=== PATIENT | female | born 1990 | race Caucasian/White ===

== ENCOUNTER 2019-04-09 21:03 | Emergency (ER) | payer OTHER ==
--- NOTE | 2019-04-10 00:09 | ER Document Report ---
ED Medical Screen (RME) - General Chief Complaint: Abdominal Pain Stated Complaint: PELVIC PAIN Time Seen by Provider: 04/10/19 00:01 Notes: 28-year-old female with history of 2 ectopic pregnancies (right ovary and right fallopian tube, respectively) presents to the emergency department with right-sided pelvic pain x2 days. She states her symptoms are consistent with previous ectopic pregnancies described as dull aching right adnexal pain with some associated lower back pain. She is complaining of spotting. She has associated nausea and vomiting. EXAM: Well-appearing and nontoxic in no acute distress. Lungs are clear to auscultation in all fisher. Regular cardiac rate and rhythm with no murmurs. I have greeted and performed a rapid initial assessment of this patient. A comprehensive ED assessment and evaluation of the patient, analysis of test results and completion of medical decision making process will be conducted by an additional ED providers. TRAVEL OUTSIDE OF THE [place] IN LAST 30 DAYS: No - Related Data Allergies/Adverse Reactions: amoxicillin Allergy (Verified 04/09/19 21:05) clarithromycin [From Biaxin] Allergy (Verified 04/09/19 21:05) Physical Exam - Vital signs Vitals: Temp Pulse Resp BP Pulse Ox 98.3 F 89 20 128/64 H 100 04/09/19 21:13 04/09/19 21:13 04/09/19 21:13 04/09/19 21:13 04/09/19 21:13 Course - Vital Signs Vital signs: Temp Pulse Resp BP Pulse Ox 98.3 F 89 20 128/64 H 100 04/09/19 21:13 04/09/19 21:13 04/09/19 21:13 04/09/19 21:13 04/09/19 21:13
--- NOTE | 2019-04-10 01:08 | RADIOLOGY REPORT (SQ) ---
EXAM DESCRIPTION: US TRANSVAGINAL COMPLETED DATE/TME: 04/10/2019 00:02 CLINICAL HISTORY: 28 years Female, Hx multiple ectopic pregnancies/ PCOS. Unknown LMP. COMPARISON: None. TECHNIQUE: Complete first trimester testicle ultrasound with transvaginal imaging. FINDINGS: Uterus: The uterus measures 9.9 x 6.6 x 7.1 cm. Cervical length of 3.7 cm. No myometrial abnormalities. Gestational sac: Normal appearing gestational sac. Mean gestational sac diameter of 2.69 cm. pole: pole identified with a crown-rump length of 0.84 cm. heart motion: 136 bpm Yolk sac: Mildly enlarged yolk sac. Placenta: Not well evaluated due to early gestational age. Right ovary: The right ovary measures 2.7 x 2.7 x 2.9 cm. Left ovary: The left ovary measures 3.1 x 2.1 x 1.9 cm. Adnexa: No large adnexal masses. Free fluid: No free pelvic fluid. Duplex imaging: Color and spectral Doppler imaging of the ovaries demonstrates blood flow bilaterally. IMPRESSION: 1. Single live intrauterine with estimated gestational age of 6 weeks, 6 days. heart rate of 136 bpm. 2. Mildly enlarged yolk sac. This can be a poor prognostic indicator. Close continued obstetrical, sonographic, and laboratory follow-up recommended.
[2019-04-10 01:26] LABS: APPEARANCE,URINE CLEAR; BILIRUBIN,URINE NEGATIVE (NEGATIVE); COLOR,URINE STRAW; GLUCOSE, URINE NEGATIVE (NEGATIVE); KETONES,URINE NEGATIVE (NEGATIVE); LEUKOCYTE ESTERASE,URINE NEGATIVE (NEGATIVE); NITRITE,URINE NEGATIVE (NEGATIVE); PROTEIN,URINE NEGATIVE (NEGATIVE); URINE SPECIFIC GRAVITY 1.006; UROBILINOGEN,URINE NEGATIVE mg/dL (<2.0)
[2019-04-10] MEDS ORDERED: ACETAMINOPHEN 325 MG TABLET PO ONE (01:37)
--- NOTE | 2019-04-10 01:48 | ER Document Report ---
ED General - General Chief Complaint: Abdominal Pain Stated Complaint: PELVIC PAIN Time Seen by Provider: 04/10/19 00:01 Primary Care Provider: [facility] [Provider Group] - Follow up in 3-5 days CHRISTIANNE VANEGAS PA-C [Primary Care Provider] - Follow up as needed TRAVEL OUTSIDE OF THE [place] IN LAST 30 DAYS: No - HPI Notes: Patient is a 28-year-old female that presents to the emergency department for chief complaint of right adnexal pain. Patient states over the last 2 days she has had intermittent right sided adnexal pain. She describes it as a throbbing achy sensation. She states it feels similar to to previous ectopic she has had. Both were treated with methotrexate and she has not had any pelvic surgery. She had one on her right ovary and one in the right fallopian tube. Patient is estimating that she is around 10 weeks based on her menstrual cycle but states she is irregular and is not sure of when her LMP exactly was. She has had a home positive test. She has not established with OB yet. She denies any dysuria, urinary frequency, fever, chills, nausea, vomiting and diarrhea. Patient does report some brown vaginal discharge over the last 2 to 3 days as well but denies any concern for STI. She states she has never needed RhoGam in the past. Past Medical History: Negative Past Surgical History: Negative Social History: Denies drugs alcohol and tobacco Family History: Reviewed and noncontributory for presenting illness Allergies: Reviewed, see documented allergy list. REVIEW OF SYSTEMS: CONSTITUTIONAL : No fever No chills No diaphoresis No recent illness EENT: No vision changes No congestion No sore throat CARDIOVASCULAR: No chest pain No palpitations RESPIRATORY: No shortness of breath No cough No difficulty breathing GASTROINTESTINAL: abdominal pain No nausea No vomiting No diarrhea GENITOURINARY: No dysuria No hematuria No difficulty urinating MUSCULOSKELETAL: No back pain No leg pain No arm pain SKIN: No rashes No lesions LYMPHATIC: No swollen, enlarged glands. NEUROLOGICAL: No lightheadedness No headache No weakness No paresthesias PSYCHIATRIC: No anxiety No depression PHYSICAL EXAMINATION: Vital signs reviewed, nursing noted reviewed. GENERAL: Well-appearing, well-nourished and in no acute distress. HEAD: Atraumatic, normocephalic. EYES: Eyes appear normal, extraocular movements intact, sclera anicteric, conjunctiva are normal. ENT: nares patent, oropharynx clear without exudates. Moist mucous membranes. NECK: Normal range of motion, supple without lymphadenopathy LUNGS: Breath sounds clear to auscultation bilaterally and equal. No wheezes rales or rhonchi. HEART: Regular rate and rhythm without murmurs ABDOMEN: Soft, nontender, normoactive bowel sounds. No rebound, guarding, or rigidity. No masses appreciated. EXTREMITIES: Nontender, good range of motion, no pitting or edema. NEUROLOGICAL: No focal neurological deficits. Moves all extremities spontaneously Motor and sensory grossly intact on exam. PSYCH: Normal mood, normal affect. SKIN: Warm, Dry, normal turgor, no rashes or lesions noted on exposed skin - Related Data Allergies/Adverse Reactions: amoxicillin Allergy (Verified 04/09/19 21:05) clarithromycin [From Biaxin] Allergy (Verified 04/09/19 21:05) Past Medical History - Social History Smoking Status: Never Smoker Family History: Reviewed & Not Pertinent Physical Exam - Vital signs Vitals: Temp Pulse Resp BP Pulse Ox 98.3 F 89 20 128/64 H 100 04/09/19 21:13 04/09/19 21:13 04/09/19 21:13 04/09/19 21:13 04/09/19 21:13 Course - Re-evaluation Re-evalutation: 04/10/19 01:46 Vitals reviewed. Nursing notes reviewed. Patient felt lightheaded with blood draw and asked that the nurse stop which is white blood has not been obtained yet. She has had pelvic ultrasound which shows single live intrauterine gestation at 6 weeks and 6 days with no apparent ectopic. Patient agreeing to repeat blood draw. I would like to check her hormone levels as well as Rh given her brown discharge she may have some early signs of bleeding and possible early threatened miscarriage. 04/10/19 03:09 Patient's blood type is O+ and she is not requiring RhoGam. She will follow with gynecology. She will return for new or worsening symptoms. Laboratory 04/10/19 04/10/19 04/10/19 01:07 01:51 01:51 Beta HCG, Quant [id number] H Total Beta HCG POSITIVE Urine Color STRAW Urine Appearance CLEAR Urine pH 7.0 Ur Specific [place] 1.006 Urine Protein NEGATIVE Urine Glucose (UA) NEGATIVE Urine Ketones NEGATIVE Urine Blood NEGATIVE Urine Nitrite NEGATIVE Urine Bilirubin NEGATIVE Urine Urobilinogen NEGATIVE Ur Leukocyte Esterase NEGATIVE Urine WBC (Auto) 1 Urine RBC (Auto) 0 Urine Bacteria (Auto) TRACE Squamous Epi Cells Auto 1 Urine Mucus (Auto) RARE Urine Ascorbic Acid NEGATIVE Blood Type O POSITIVE Rhogam Indicated RHOGAM NOT INDICATED Transvaginal US 04/10/19 00:02 IMPRESSION: 1. Single live intrauterine with estimated gestational age of 6 weeks, 6 days. heart rate of 136 bpm. 2. Mildly enlarged yolk sac. This can be a poor prognostic indicator. Close continued obstetrical, sonographic, and laboratory follow-up recommended. - Vital Signs Vital signs: Temp Pulse Resp BP Pulse Ox 98.3 F 89 20 128/64 H 100 04/09/19 21:13 04/09/19 21:13 04/09/19 21:13 04/09/19 21:13 04/09/19 21:13 - Laboratory Laboratory results interpreted by me: 04/10/19 01:51 Beta HCG, Quant [id number] H Discharge - Discharge Clinical Impression: Pelvic pain affecting Qualifiers: Trimester: first trimester Qualified Code(s): O26.891 - Other specified related conditions, first trimester Condition: Stable Disposition: HOME, SELF-CARE Instructions: Pelvic Pain in ([facility]), Threatened Miscarriage ([facility]) Additional Instructions: Please return to the emergency department if you have any worsening, or concern of your symptoms. Please return to the emergency department if you develop chest pain, difficulty breathing, severe abdominal pain, or ongoing vomiting. Please follow-up with your primary care physician in 2-3 days and any other recommended physicians. If prescribed, take all medications as directed. If you have any questions or concerns do not hesitate to return the emergency department for evaluation. Referrals: CHRISTIANNE VANEGAS PA-C [Primary Care Provider] - Follow up as needed [facility] [Provider Group] - Follow up in 3-5 days
[2019-04-10 03:21] VITALS: BP 111/73
== END 2019-04-10 03:24 | disposition home or self-care (01) ==
LOC: ER 21:03
DX: O26.891 Other specified pregnancy related conditions, first trimester (principal); R10.9 Unspecified abdominal pain; R10.2 Pelvic and perineal pain; Z3A.01 Less than 8 weeks gestation of pregnancy; Z88.0 Allergy status to penicillin; Z88.3 Allergy status to other anti-infective agents
CPT/HCPCS: 36415; 76817; 81001; 84702; 86900; 86901; 93976; 99284

== ENCOUNTER 2019-11-06 19:17 | Outpatient (CLI) | payer OTHER ==
[2019-11-06 20:14] LABS: APPEARANCE,URINE CLEAR; BILIRUBIN,URINE NEGATIVE (NEGATIVE); COLOR,URINE YELLOW; GLUCOSE, URINE NEGATIVE (NEGATIVE); KETONES,URINE NEGATIVE (NEGATIVE); LEUKOCYTE ESTERASE,URINE NEGATIVE (NEGATIVE); NITRITE,URINE NEGATIVE (NEGATIVE); PROTEIN,URINE NEGATIVE (NEGATIVE); URINE SPECIFIC GRAVITY 1.011; UROBILINOGEN,URINE NEGATIVE mg/dL (<2.0)
[2019-11-06] MEDS ORDERED: RINGERS SOLUTION,LACTATED 1,000 ML IV PRN (20:14)
[2019-11-06 20:29] LABS: URINE AMPHETAMINES SCREEN NEGATIVE; URINE BARBITURATES SCREEN NEGATIVE; URINE BENZODIAZEPINES SCREEN NEGATIVE; URINE COCAINE SCREEN NEGATIVE; URINE MARIJUANA (THC) SCREEN NEGATIVE; URINE METHADONE SCREEN NEGATIVE; URINE PHENCYCLIDINE SCREEN NEGATIVE
[2019-11-06] MEDS ORDERED: RINGERS SOLUTION,LACTATED 1,000 ML IV ONE (20:45)
[2019-11-06] MEDS ORDERED: TERBUTALINE SULFATE INJ/PF 1 MG/1 ML SDV ONE (21:40)
[2019-11-06] MEDS ORDERED: BETAMET ACET/BETAMET NA INJ 6 MG/1 ML ONE (21:41)
[2019-11-06] MEDS ORDERED: TERBUTALINE SULFATE INJ/PF 1 MG/1 ML SDV SUBCUT ONE (21:58)
[2019-11-06] MEDS ORDERED: BETAMET ACET/BETAMET NA INJ 6 MG/1 ML IM ONE (21:58)
[2019-11-06] MEDS ORDERED: HYDROXYZINE PAMOATE 50 MG CAPSULE ONE (23:16)
[2019-11-06] MEDS ORDERED: HYDROXYZINE PAMOATE 50 MG CAPSULE PO ONE (23:16)
--- NOTE | 2019-11-06 23:21 | Non Stress Test Report ---
Non Stress Test Datetime Report Generated by CPN: 11/06/2019 23:21 DEMOGRAPHIC EGA NST: 36.5 INDICATION Indication for Study (NST) Other: LC- contractions MONITORING Monitor Explained: Monitor Explained; Test Explained; Patient Verbalized Understanding Time on Monitor: 11/06/2019 19:31 Time off Monitor: 11/06/2019 23:17 NST Duration: 226 NST INTERVENTIONS NST Interventions: PO Hydration; IV Fluids Physician Notified NST: Dr. Bc BABY A: [id number] BABY A Movement : Present Contraction Frequency : 1-2.5 FHR Baseline : 130 Accelerations : 15X15 Decelerations : None Variability : Moderate 6-25bpm NST Review: Meets Criteria for Reactive NST NST Review and Verified By : Uma Hayward RN NST Results: Reactive NST REPORT Report Trigger: Send Report
== END 2019-11-06 23:30 | disposition home or self-care (01) ==
LOC: LC 19:17
PROVIDERS: ATTEND Student in an Organized Health Care Education/Training Program
PROC: 4A1HXCZ Monitoring of Products of Conception, Cardiac Rate, External Approach (ICD-10-PCS; principal; 2019-11-06)
DX: O47.03 False labor before 37 completed weeks of gestation, third trimester (principal); Z3A.36 36 weeks gestation of pregnancy
CPT/HCPCS: 59025; 81005; 87081; 80307; J0702; J3105; 94760; 96372

== ENCOUNTER 2019-11-22 07:33 | Inpatient (IN) | payer OTHER ==
[2019-11-20 09:48] LABS: ABSOLUTE EOSINOPHILS # (AUTO) 0.2 10^3/uL (0.0-0.6); ABSOLUTE LYMPHOCYTES (AUTO) 1.8 10^3/uL (0.5-4.7); ABSOLUTE MONOCYTES (AUTO) 0.6 10^3/uL (0.1-1.4); ABSOLUTE NEUT (AUTO) 7.1 10^3/uL (1.7-8.2); BASOPHILS % (AUTO) 0.3 % (0-2); EOSINOPHILS % (AUTO) 1.7 % (0-6); HEMATOCRIT 34.9 % (36.0-47.0); LYMPHOCYTES % (AUTO) 18.1 % (13-45); MEAN CORPUSCULAR HEMOGLOBIN 29.7 pg (27.0-33.4); MEAN CORPUSCULAR HGB CONC 34.3 g/dL (32.0-36.0); MEAN CORPUSCULAR VOLUME 87 fl (80-97); MONOCYTES % (AUTO) 6.2 % (3-13); PLATELET COUNT 144 10^3/uL (150-450); RED BLOOD COUNT 4.03 10^6/uL (3.72-5.28); RED CELL DISTRIBUTION WIDTH 13.3 % (11.5-14.0); SEGMENTED NEUTROPHILS % (AUTO) 73.7 % (42-78); TOTAL CELLS COUNTED % (AUTO) 100 %; WHITE BLOOD COUNT 9.7 10^3/uL (4.0-10.5)
[2019-11-20 09:51] LABS: APPEARANCE,URINE CLEAR; BILIRUBIN,URINE NEGATIVE (NEGATIVE); COLOR,URINE YELLOW; GLUCOSE, URINE NEGATIVE (NEGATIVE); KETONES,URINE NEGATIVE (NEGATIVE); LEUKOCYTE ESTERASE,URINE NEGATIVE (NEGATIVE); NITRITE,URINE NEGATIVE (NEGATIVE); PROTEIN,URINE NEGATIVE (NEGATIVE); URINE SPECIFIC GRAVITY 1.009; UROBILINOGEN,URINE NEGATIVE mg/dL (<2.0)
[2019-11-20 10:07] LABS: URINE AMPHETAMINES SCREEN NEGATIVE; URINE BARBITURATES SCREEN NEGATIVE; URINE BENZODIAZEPINES SCREEN NEGATIVE; URINE COCAINE SCREEN NEGATIVE; URINE MARIJUANA (THC) SCREEN NEGATIVE; URINE METHADONE SCREEN NEGATIVE; URINE PHENCYCLIDINE SCREEN NEGATIVE
[2019-11-20 11:11] LABS: CHLAM PCR NOT DETECTED (NOT DETECT)
[~2019-11-22 07:33] MED LIST: CEFAZOLIN SODIUM 2 GM in DEXTROSE 5%-WATER 100 ML IV PRN; LACTATED RINGERS 1000 ML IV PRN; LIDOCAINE 0.5% INJ-PF (5 MG/ML) 50 ML SDV SUBCUT PRN
[2019-11-22] MEDS: RINGERS SOLUTION,LACTATED 1,000 ML IV PRN ×2 (08:53→09:41)
[2019-11-22] MEDS ORDERED: FENTANYL CITRATE INJ/PF 100 MCG/2 ML AMPUL ONE (09:11)
[2019-11-22] MEDS ORDERED: DIPHENHYDRAMINE HCL 50 MG/ML VIAL ONE (09:11)
[2019-11-22] MEDS ORDERED: OXYTOCIN/NORMAL SALINE 20 UNIT/1,000 ML RTUINJ ONE (09:11)
[2019-11-22] MEDS ORDERED: OXYTOCIN 10 UNIT/ML VIAL ONE ×2 (09:11→10:06)
[2019-11-22] MEDS ORDERED: FAMOTIDINE INJ/PF 20 MG/2 ML SDV IV ONE (09:12)
[2019-11-22] MEDS ORDERED: ONDANSETRON HCL INJ/PF 4 MG/2 ML SDV ONE (09:12)
[2019-11-22] MEDS ORDERED: ACETAMINOPHEN 1,000 MG/100 ML RTUPB IV ONE (09:12)
[2019-11-22] MEDS ORDERED: CEFAZOLIN 2 GM/D5W RTU 2 GM/50 ML RTUPB IV ONE (09:16)
[2019-11-22] MEDS ORDERED: METHYLERGONOVINE MALEATE INJ/PF 0.2 MG/1 ML AMPULE ONE (09:30)
[2019-11-22] MEDS ORDERED: CITRIC ACID/SODIUM CITRATE ORAL SOLN 15 ML UDCUP ONE (09:48)
[2019-11-22] MEDS ORDERED: MISOPROSTOL 0.2 MG TABLET ONE ×2 (10:23→10:24)
[2019-11-22] MEDS ORDERED: MISOPROSTOL 0.1 MG TABLET ONE (10:24)
[2019-11-22] MEDS ORDERED: MORPHINE SULFATE 10 MG/ML INJ IV PRN (10:26)
[2019-11-22] MEDS ORDERED: DIPHENHYDRAMINE HCL 50 MG/ML VIAL IV PRN (10:26)
[2019-11-22] MEDS ORDERED: FENTANYL CITRATE INJ/PF 100 MCG/2 ML AMPUL IV PRN ×3 (10:26)
[2019-11-22] MEDS ORDERED: OXYCODONE-ACETAMINOPHEN 5-325 MG TABLET PO PRN ×3 (10:26→11:54)
[2019-11-22] MEDS ORDERED: ONDANSETRON HCL INJ/PF 4 MG/2 ML SDV IV PRN (10:26)
[2019-11-22] MEDS: MISOPROSTOL 0.2 MG TABLET ONE ×3 (10:32→11:30)
[2019-11-22] MEDS ORDERED: MEASLES,MUMPS&RUBELLA VACC/PF 0.5 ML VIAL SUBCUT PRN (11:54)
[2019-11-22] MEDS ORDERED: OXYTOCIN/NORMAL SALINE 20 UNIT/1,000 ML RTUINJ IV PRN (11:54)
[2019-11-22] MEDS ORDERED: DIPH/PERTUSS(ACELL)/TETANUS VAC/PF 0.5 ML SYR (>=10YO) IM PRN (11:54)
[2019-11-22] MEDS ORDERED: ACETAMINOPHEN 325 MG TABLET PO PRN (11:54)
[2019-11-22] MEDS ORDERED: HYDROMORPHONE HCL INJ/PF 2 MG/ML AMPULE IV PRN (11:54)
[2019-11-22] MEDS ORDERED: PROMETHAZINE HCL INJ 25 MG/1 ML VIAL IV PRN (11:54)
[2019-11-22] MEDS ORDERED: RINGERS SOLUTION,LACTATED 1,000 ML IV PRN (11:54)
[2019-11-22] MEDS ORDERED: IBUPROFEN 800 MG TABLET PO SCH (12:00)
--- NOTE | 2019-11-22 12:05 | Brief Operative Note ---
BRIEF OPERATIVE REPORT DATE OF SURGERY: 11/22/19 TIME OF SURGERY: 11:30 PREOPERATIVE DIAGNOSIS: History of section x 2, 39+1ega POSTOPERATIVE DIAGNOSIS: KHOA - delivered SURGEON: NETO DIANA FINDINGS: VMI delivered at 1034, weight 8#3oz (3710g), Apgars 9/9. normal bilateral tubes and ovaries. COMPLICATIONS: none ESTIMATED BLOOD LOSS: 700 TISSUE REMOVED OR ALTERED: placenta and cord not sent to pathology TECHNICAL PROCEDURE: Repeat section with scar revision
[2019-11-22] MEDS ORDERED: MEPERIDINE HCL/PF INJ 25 MG/1 ML DISP.SYRIN ONE (12:26)
[2019-11-22] MEDS: MEPERIDINE HCL/PF INJ 25 MG/1 ML DISP.SYRIN IV PRN ×2 (12:27→12:45)
[2019-11-22] MEDS ORDERED: HYDROMORPHONE HCL INJ/PF 2 MG/ML AMPULE ONE (13:40)
[2019-11-22] MEDS: KETOROLAC TROMETHAMINE INJ/PF 30 MG/1 ML SDV IV SCH ×2 (15:47→21:42)
[2019-11-22] MEDS: DOCUSATE SODIUM 100 MG CAPSULE PO SCH (17:18)
[2019-11-23] MEDS: KETOROLAC TROMETHAMINE INJ/PF 30 MG/1 ML SDV IV SCH (06:00)
[2019-11-23] MEDS: OXYCODONE-ACETAMINOPHEN 5-325 MG TABLET PO PRN ×4 (06:21→19:30)
[2019-11-23] MEDS: SIMETHICONE 80 MG TAB.CHEW PO PRN ×3 (06:21→22:30)
[2019-11-23 08:09] LABS: HEMOGLOBIN 10.6 g/dL (12.0-15.5); MEAN CORPUSCULAR HEMOGLOBIN 29.6 pg (27.0-33.4); MEAN CORPUSCULAR HGB CONC 34.2 g/dL (32.0-36.0); MEAN CORPUSCULAR VOLUME 87 fl (80-97); PLATELET COUNT 134 10^3/uL (150-450); RED BLOOD COUNT 3.58 10^6/uL (3.72-5.28); RED CELL DISTRIBUTION WIDTH 13.3 % (11.5-14.0); WHITE BLOOD COUNT 13.6 10^3/uL (4.0-10.5)
[2019-11-23] MEDS: DOCUSATE SODIUM 100 MG CAPSULE PO SCH ×2 (10:53→18:13)
[2019-11-23] MEDS: PRENATAL VITAMIN W DHA CAPSULE PO SCH (10:53)
--- NOTE | 2019-11-23 12:02 | PDOC PROGRESS REPORT ---
Subjective-OB Progress Note for:: 11/23/19 Subjective: reports bleeding slowing, pain controlled with current meds, denies needs. + passing gas Physical Exam (OB) Vital Signs: Temp Pulse Resp BP Pulse Ox 98.8 F 96 18 123/83 96 11/23/19 07:24 11/23/19 07:24 11/23/19 07:24 11/23/19 07:24 11/23/19 07:24 Intake & Output 11/22/19 11/23/19 11/24/19 06:59 06:59 06:59 Intake Total 799 Output Total 400 Balance 399 Weight 94 kg - Incision: Open, Well Approximated Closure Type: Surgical Glue - Abdomen Description: Tender, Flat Hernia Present: No Fundal Description: Firm, Midline Fundal Height: u/u - u/2 - Abdominal Distension: No distension - Extremities Lower extremities: Petey's sign - neg Calf: Normal, Nontender Objective-Diagnostic Laboratory: 11/23/19 07:55 11/23/19 07:55 WBC 13.6 H RBC 3.58 L Hgb 10.6 L Hct 31.0 L MCV 87 MCH 29.6 MCHC 34.2 RDW 13.3 Plt Count 134 L Assessment and Plan(PN) - Assessment and Plan (1) S/P repeat low transverse Is this a current diagnosis for this admission?: Yes (2) History of section Is this a current diagnosis for this admission?: Yes (3) hemorrhage Is this a current diagnosis for this admission?: Yes - Time Spent with Patient Time with patient: Less than 15 minutes Medications reviewed and adjusted accordingly: Yes - Disposition Anticipated Discharge: Home Within: within 48 hours
[2019-11-23] MEDS ORDERED: KETOROLAC TROMETHAMINE 10 MG TABLET PO ONE (22:00)
[2019-11-23] MEDS ORDERED: KETOROLAC TROMETHAMINE 10 MG TABLET ONE (22:04)
[2019-11-23] MEDS ORDERED: ZOLPIDEM TARTRATE 5 MG TABLET PO PRN (22:10)
[2019-11-24] MEDS ORDERED: KETOROLAC TROMETHAMINE 10 MG TABLET ONE (05:49)
[2019-11-24] MEDS: KETOROLAC TROMETHAMINE 10 MG TABLET PO SCH ×2 (06:09→13:32)
[2019-11-24] MEDS: SIMETHICONE 80 MG TAB.CHEW PO PRN ×2 (06:13→14:22)
[2019-11-24] MEDS: DOCUSATE SODIUM 100 MG CAPSULE PO SCH (09:20)
[2019-11-24] MEDS: PRENATAL VITAMIN W DHA CAPSULE PO SCH (09:20)
--- NOTE | 2019-11-24 12:53 | PDOC DISCHARGE SUMMARY ---
Impression - Admit/DC Date/PCP Admission Date/Primary Care Provider: 11/22/19 08:09 WANDER LACEY MD Discharge Date: 11/24/19 - Discharge Diagnosis (1) S/P repeat low transverse Is this a current diagnosis for this admission?: Yes (2) History of section Is this a current diagnosis for this admission?: Yes (3) hemorrhage Is this a current diagnosis for this admission?: Yes - Additional Information Resuscitation Status: Full Code Discharge Diet: As Tolerated Discharge Activity: Balance Activity w/Rest, No Lifting Over 10 Pounds, No Lifting/Push/Pulling, Pelvic Rest, No tub bath Referrals: [facility] [Provider Group] Prescriptions: Ketorolac Tromethamine [Toradol 10 mg Tablet] 10 mg PO Q8 #30 tablet Home Medications: Vit,Calc76/Iron/Folic [Prenatabs Rx Tablet] 1 tab PO DAILY 11/06/19 Ketorolac Tromethamine [Toradol 10 mg Tablet] 10 mg PO Q8 #30 tablet 11/24/19 HPI Gestational Age: 39+1 Reason(s) for Admission: Ceasarean Section-Repeat Procedures: NST Intrapartum Procedure(s): : Low Cervical, Transverse Results Laboratory Results: WBC 13.6 10^3/uL (4.0-10.5) H 11/23/19 07:55 RBC 3.58 10^6/uL (3.72-5.28) L 11/23/19 07:55 Hgb 10.6 g/dL (12.0-15.5) L 11/23/19 07:55 Hct 31.0 % (36.0-47.0) L 11/23/19 07:55 MCV 87 fl (80-97) 11/23/19 07:55 MCH 29.6 pg (27.0-33.4) 11/23/19 07:55 MCHC 34.2 g/dL (32.0-36.0) 11/23/19 07:55 RDW 13.3 % (11.5-14.0) 11/23/19 07:55 Plt Count 134 10^3/uL (150-450) L 11/23/19 07:55 Lymph % (Auto) 18.1 % (13-45) 11/20/19 09:15 [place] % (Auto) 6.2 % (3-13) 11/20/19 09:15 Eos % (Auto) 1.7 % (0-6) 11/20/19 09:15 Baso % (Auto) 0.3 % (0-2) 11/20/19 09:15 Absolute Neuts (auto) 7.1 10^3/uL (1.7-8.2) 11/20/19 09:15 Absolute Lymphs (auto) 1.8 10^3/uL (0.5-4.7) 11/20/19 09:15 Absolute Monos (auto) 0.6 10^3/uL (0.1-1.4) 11/20/19 09:15 Absolute Eos (auto) 0.2 10^3/uL (0.0-0.6) 11/20/19 09:15 Absolute Basos (auto) 0.0 10^3/uL (0.0-0.2) 11/20/19 09:15 Seg Neutrophils % 73.7 % (42-78) 11/20/19 09:15 Urine Color YELLOW 11/20/19 09:00 Urine Appearance CLEAR 11/20/19 09:00 Urine pH 6.0 (5.0-9.0) 11/20/19 09:00 Ur Specific [place] 1.009 11/20/19 09:00 Urine Protein NEGATIVE mg/dL (NEGATIVE) 11/20/19 09:00 Urine Glucose (UA) NEGATIVE mg/dL (NEGATIVE) 11/20/19 09:00 Urine Ketones NEGATIVE mg/dL (NEGATIVE) 11/20/19 09:00 Urine Blood NEGATIVE (NEGATIVE) 11/20/19 09:00 Urine Nitrite NEGATIVE (NEGATIVE) 11/20/19 09:00 Urine Bilirubin NEGATIVE (NEGATIVE) 11/20/19 09:00 Urine Urobilinogen NEGATIVE mg/dL (<2.0) 11/20/19 09:00 Ur Leukocyte Esterase NEGATIVE (NEGATIVE) 11/20/19 09:00 Urine WBC (Auto) 2 /HPF 11/20/19 09:00 Urine RBC (Auto) 0 /HPF 11/20/19 09:00 Urine Bacteria (Auto) TRACE /HPF 11/20/19 09:00 Squamous Epi Cells Auto 1 /HPF 11/20/19 09:00 Urine Mucus (Auto) RARE /LPF 11/20/19 09:00 Urine Ascorbic Acid NEGATIVE (NEGATIVE) 11/20/19 09:00 Urine Opiates Screen NEGATIVE 11/20/19 09:00 Urine Methadone Screen NEGATIVE 11/20/19 09:00 Ur Barbiturates Screen NEGATIVE 11/20/19 09:00 Ur Phencyclidine Scrn NEGATIVE 11/20/19 09:00 Ur Amphetamines Screen NEGATIVE 11/20/19 09:00 U Benzodiazepines Scrn NEGATIVE 11/20/19 09:00 Urine Cocaine Screen NEGATIVE 11/20/19 09:00 U Marijuana (THC) Screen NEGATIVE 11/20/19 09:00 Chlamydia DNA (PCR) NOT DETECTED (NOT DETECT) 11/20/19 09:00 N.gonorrhoeae DNA (PCR) NOT DETECTED (NOT DETECT) 11/20/19 09:00 Blood Type O POSITIVE 11/20/19 09:15 Antibody Screen NEGATIVE 11/20/19 09:15 Plan Goals: follow up at [facility] [place] in one week for incision check
[2019-11-24 13:05] VITALS: BP 124/79
--- NOTE | 2019-11-29 10:41 | Operative Report ---
Operative Report DATE OF SURGERY: 11/22/19
== END 2019-11-24 14:48 | disposition home or self-care (01) | DRG 788 ==
LOC: 2S 08:09
PROVIDERS: ADMIT Student in an Organized Health Care Education/Training Program; ATTEND Student in an Organized Health Care Education/Training Program
PROC: 10D00Z1 Extraction of Products of Conception, Low, Open Approach (ICD-10-PCS; principal; 2019-11-22 10:15)
DX: O34.211 Maternal care for low transverse scar from previous cesarean delivery (principal); N85.8 Other specified noninflammatory disorders of uterus; O99.284 Endocrine, nutritional and metabolic diseases complicating childbirth; E28.2 Polycystic ovarian syndrome; O99.344 Other mental disorders complicating childbirth; F98.8 Other specified behavioral and emotional disorders with onset usually occurring in childhood and adolescence; Z37.0 Single live birth; Z3A.39 39 weeks gestation of pregnancy
CPT/HCPCS: 1961; 36415; 59025; 80307; 81001; 85025; 85027; 86850; 86900; 86901; 87491; 87591; 94799; J0131; J1170; J1200; J1885; J2175; J2210; J2405; J2590; J3010; J3490; J7120; S0028